=== PATIENT | female | born 1960 | race Caucasian/White ===

== ENCOUNTER 2018-12-12 14:10 | Emergency (ER) | payer SELFPAY ==
[~2018-12-12] VITALS: Ht 152.4 cm; Wt 100.0 kg
[2018-12-12 14:12] VITALS: RESP 18; Ht 152.4 cm; Wt 100.0 kg
--- NOTE | 2018-12-12 14:53 | ERD ---
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 Patient reports that she took ibuprofen 800 mg last night without any relief of her pain. Otherwise, denies any fever, chills, recent trauma or falls. ROS All systems reviewed and are negative except as per history of present illness. Medications Home Meds Active Scripts Sulfamethoxazole/Trimethoprim* (Bactrim Ds* Tablet) 1 Each Tablet, 1 TAB PO BID, #14 TAB Prov:JENNIFER BARTH MD 12/12/18 Cephalexin* (Keflex*) 500 Mg Capsule, 500 MG PO BID for 7 Days, #14 CAP Prov:JENNIFER BARTH MD 12/12/18 Ibuprofen* (Motrin*) 400 Mg Tab, 400 MG PO Q8, #20 TAB Prov:JENNIFER BARTH MD 12/12/18 Allergies Allergies: Coded Allergies: acetaminophen (Verified Allergy, Unknown, 12/12/18) hydrocodone (Verified Allergy, Unknown, 12/12/18) morphine (Verified Allergy, Unknown, 12/12/18) PMhx/Soc Hx Miscellaneous Medical Probl: Yes (HTN) Hx Alcohol Use: No Hx Substance Use: No Hx Tobacco Use: Yes Smoking Status: Current every day smoker Physical Exam Vitals Vital Signs Date Temp Pulse Resp B/P (MAP) Pulse Ox O2 O2 Flow FiO2 Time Delivery Rate 12/12/18 80 131/69 100 Room Air 16:45 (89) 12/12/18 98.3 98 18 176/97 100 14:12 (123) Physical Exam Const: No acute distress Head: Atraumatic Eyes: Normal Conjunctiva ENT: Normal External Ears, Nose and Mouth. Neck: Full range of motion. No meningismus. Resp: Clear to auscultation bilaterally Cardio: Regular rate and rhythm, no murmurs Abd: Soft, non tender, non distended. Normal bowel sounds Skin: No petechiae or rashes Back: No midline or flank tenderness Ext: Tenderness to palpation along the right 5th digit and hand region with some mild swelling. Mild tenderness to palpation of the medial epicondyle. Decreased ROM of the right 3rd to 5th digits of the right hand due to pain. Sensation intact. Capillary refill less than 2 seconds. No cyanosis, or edema Neur: Awake and alert Psych: Normal Mood and Affect Result Diagram: 12/12/18 1515 12/12/18 1515 Results 24 hrs Laboratory Tests Test 12/12/18 15:15 White Blood Count 11.2 10^3/ul Red Blood Count 5.15 10^6/ul Hemoglobin 14.5 g/dl Hematocrit 46.0 % Mean Corpuscular Volume 89.3 fl Mean Corpuscular Hemoglobin 28.2 pg Mean Corpuscular Hemoglobin Concent 31.5 g/dl Red Cell Distribution Width 13.6 % Platelet Count 235 10^3/UL Mean Platelet Volume 10.9 fl Immature Granulocytes % 0.500 % Neutrophils % 64.3 % Lymphocytes % 28.4 % Monocytes % 5.5 % Eosinophils % 0.9 % Basophils % 0.4 % Nucleated Red Blood Cells % 0.0 /100WBC Immature Granulocytes # 0.060 10^3/ul Neutrophils # 7.2 10^3/ul Lymphocytes # 3.2 10^3/ul Monocytes # 0.6 10^3/ul Eosinophils # 0.1 10^3/ul Basophils # 0.0 10^3/ul Nucleated Red Blood Cells # 0.0 10^3/ul Sodium Level 141 mmol/L Potassium Level 4.1 mmol/L Chloride Level 102 mmol/L Carbon Dioxide Level 34 mmol/L Anion Gap 5 Blood Urea Nitrogen 15 mg/dl Creatinine 0.80 mg/dl Est Glomerular Filtrat Rate mL/min > 60 mL/min Glucose Level 93 mg/dl Calcium Level 9.9 mg/dl Current Medications Medications Dose Sig/Rich Start Time Status Last (Trade) Ordered Route PRN Stop Time Admin Dose Reason Admin Ceftriaxone 50 ml @ ONCE ONCE 12/12/18 DC 12/12/18 Sodium 100 mls/hr IVPB 15:30 15:21 12/12/18 15:59 Ketorolac 30 mg ONCE STAT 12/12/18 DC 12/12/18 Tromethamine IV 15:03 15:21 (Toradol) 12/12/18 15:07 8 mg ONCE ONCE 12/12/18 DC 12/12/18 Dexamethasone IV 15:30 15:21 (Decadron) 12/12/18 15:31 Procedures/MDM Vital signs stable, differential diagnosis include but not limited to: DVT, superficial thrombosis, cellulitis, erysipelas, shingles, abscess. Low suspicion for acute systemic infectious process. Physical examination and clinical presentation consistent most likely with cellulitis of the right hand without evidence of abscess formation. During the ED course the patient remained stable, no new complaints. The patient received treatment with IV antibiotics presenting overall improvement of the symptoms Results and clinical impression discussed with the patient who agrees with management. The patient is stable to be treated outpatient and will be discharged home with a Rx for antibiotics, anti-inflammatories and pain medications, some side effects of prescribed medications (headache, rash, nausea, vomiting, diarrhea, drowsiness, habituation, bleeding, hypertension, interactions with other medications) were reviewed. The patient was instructed to follow up with the primary care provider in the n ext 48h. If symptoms persist, worsen or new symptoms develop, then patient should return to the ED immediately. Instructions explained and given directly by me to the patient and relatives with acknowledgment and demonstrated understanding. Disclaimer: Inadvertent spelling and grammatical errors are likely due to EHR/dictation software use and do not reflect on the overall quality of patient care. Also, please note that the electronic time recorded on this note does not necessarily reflect the actual time of the patient encounter. Departure Diagnosis: Primary Impression: Cellulitis of right hand excluding fingers and thumb Condition: Stable Additional Instructions: Thank you very much for allowing us to participate in your care. Your health and safety is our top priority at [facility]. Call your primary care doctor TOMORROW for an appointment during the next 2-4 days and bring all the information and medications prescribed. Have prescriptions filled and follow precisely the directions on the label. If the symptoms get worse and your provider is unavailable, return to the Emergency Department immediately. JENNIFER BATRH MD Dec 12, 2018 14:53
[2018-12-12] MEDS ORDERED: KETOROLAC 30 MG INJ IV STA (15:03)
[2018-12-12] MEDS ORDERED: CEFTRIAXONE 1 GM/50 ML (PMX) 50 ML IVPB ONE (15:30)
[2018-12-12] MEDS ORDERED: DEXAMETHASONE 10 MG/ML 1 ML INJ IV ONE (15:30)
[2018-12-12] MEDS ORDERED: SULF1TAB31 PO (15:48)
[2018-12-12] MEDS ORDERED: CEPH-443 PO (15:48)
[2018-12-12] MEDS ORDERED: IBUP-1561 PO (15:48)
[2018-12-12 16:45] VITALS: BP 131/69; PULSE 80
== END 2018-12-12 16:48 | disposition home or self-care (01) ==
LOC: FTE 14:10
DX: L03.113 Cellulitis of right upper limb (principal); I10 Essential (primary) hypertension; F17.210 Nicotine dependence, cigarettes, uncomplicated
CPT/HCPCS: 36415; 73110; 80048; 85025; 96365; 96375; 99284; J0696; J1100; J1885